=== PATIENT | female | born 1955 | race Two or more races ===

== ENCOUNTER 2019-06-23 10:15 | Emergency (ER) | payer MEDICAID ==
[~2019-06-23] VITALS: Ht 144.8 cm; Wt 47.7 kg
[2019-06-23] MEDS ORDERED: IBUP-2070 PO (10:30)
[2019-06-23] MEDS ORDERED: ACETAMINOPHEN 325 MG TABLET PO ONE (10:45)
[2019-06-23 11:21] LABS: BASOPHILS % (AUTO) 0.3 % (0.0-2.0); EOSINOPHILS % (AUTO) 0.1 % (1.0-6.0); HEMATOCRIT 38.6 % (36-46); HEMOGLOBIN 13.7 g/dL (12.0-16.0); LYMPHOCYTES # (AUTO) 0.9 K/uL (1.0-4.8); LYMPHOCYTES % (AUTO) 6.2 % (22.0-44.0); MEAN CORPUSCULAR HEMOGLOBIN 33.7 pg (26.0-34.0); MEAN CORPUSCULAR HGB CONC 35.5 G/dL (31.0-37.0); MEAN CORPUSCULAR VOLUME 95 fL (80-100); MONOCYTES # (AUTO) 1.5 K/uL (0.1-1.0); MONOCYTES % (AUTO) 10.5 % (2.0-9.0); NEUTROPHILS % (AUTO) 82.9 % (40.0-70.0); PLATELET COUNT (AUTO) 182 K/uL (150-450); RED BLOOD CELL COUNT(AUTO) 4.06 MIL/uL (4.00-5.20); RED CELL DISTRIBUTION WIDTH 12.3 % (11.5-14.5)
[2019-06-23 11:37] LABS: ANION GAP 13 mmol/L (8-16); CALCIUM, TOTAL 9.3 mg/dL (8.8-10.5); CARBON DIOXIDE 23 mmol/L (22-29); CHLORIDE 101 mmol/L (98-107); GLOMERULAR FILTR. RATE CALC > 60 mL/min (>60); GLUCOSE,RANDOM 97 mg/dL (70-110); POTASSIUM 3.2 mmol/L (3.5-5.1); SODIUM SERUM 137 mmol/L (136-145); UREA NITROGEN, BLOOD 10 mg/dL (7-18)
[2019-06-23 11:45] LABS: ALANINE AMINOTRANSFERASE 40 U/L (12-78); ALBUMIN 3.3 g/dL (3.4-5.0); ALKALINE PHOSPHATASE 133 U/L (46-116); ASPARTATE AMINOTRANSFERASE 45 U/L (15-37); BILIRUBIN,TOTAL 0.9 mg/dL (0.1-1.0); TOTAL PROTEIN, SERUM 7.2 g/dL (6.4-8.2)
[2019-06-23] MEDS ORDERED: CEPHALEXIN MONOHYDRATE 500 MG CAPSULE PO ONE (12:15)
[2019-06-23 12:59] LABS: INFLUENZA TYPE A NEGATIVE FOR TYPE A (NEGATIVE); INFLUENZA TYPE B NEGATIVE FOR TYPE B (NEGATIVE)
[2019-06-23 13:31] VITALS: BP 144/77
== END 2019-06-23 13:38 | disposition home or self-care (01) ==
LOC: EMS 10:18
DX: N12 Tubulo-interstitial nephritis, not specified as acute or chronic (principal); M79.10 Myalgia, unspecified site; F17.210 Nicotine dependence, cigarettes, uncomplicated; Z90.710 Acquired absence of both cervix and uterus
CPT/HCPCS: 87804

== ENCOUNTER 2021-02-20 10:07 | Emergency (ER) | payer MEDICAID, MEDICARE ==
[~2021-02-20] VITALS: Ht 144.8 cm; Wt 47.7 kg
[~2021-02-20 10:07] MED LIST: IBUP-2070 PO
[2021-02-20 10:09] VITALS: BP 184/107
[2021-02-20] MEDS ORDERED: MV-M1TAB57 PO (10:10)
[2021-02-20] MEDS ORDERED: CEPHALEXIN MONOHYDRATE 500 MG CAPSULE PO ONE (10:45)
[2021-02-20] MEDS ORDERED: IBUPROFEN 400 MG TABLET PO ONE (10:45)
== END 2021-02-20 11:15 | disposition home or self-care (01) ==
LOC: EMS 10:09
DX: M71.122 Other infective bursitis, left elbow (principal); L03.114 Cellulitis of left upper limb; F17.210 Nicotine dependence, cigarettes, uncomplicated
CPT/HCPCS: 99283

== ENCOUNTER 2021-02-22 09:51 | Emergency (ER) | payer MEDICARE ==
[~2021-02-22] VITALS: Ht 144.8 cm; Wt 47.7 kg
[~2021-02-22 09:51] MED LIST changes: +MV-M1TAB57 PO
[2021-02-22 09:56] VITALS: BP 166/98
[2021-02-22] MEDS ORDERED: TraMADol HCL 50 MG TABLET PO ONE (10:30)
== END 2021-02-22 11:13 | disposition home or self-care (01) ==
LOC: EMS 09:53
DX: M70.22 Olecranon bursitis, left elbow (principal); Y93.89 Activity, other specified
CPT/HCPCS: 99283

== ENCOUNTER 2024-09-12 09:50 | Emergency (ER) | payer MEDICARE ==
[~2024-09-12] VITALS: Ht 144.8 cm; Wt 40.5 kg
[~2024-09-12 09:50] MED LIST changes: +IBUP-1492 PO; -IBUP-2070 PO
[2024-09-12 09:59] VITALS: TEMP 98.3
[2024-09-12] MEDS: KETOROLAC TROMETHAMINE 60 MG/2 ML VIAL IM ONE (10:23)
[2024-09-12] MEDS ORDERED: IBUP-1492 PO (11:01)
[2024-09-12 11:12] VITALS: BP 179/81; PULSE 89; RESP 19; O2SAT 97
== END 2024-09-12 11:14 | disposition home or self-care (01) ==
LOC: EMS 09:50
DX: M23.92 Unspecified internal derangement of left knee (principal); F17.210 Nicotine dependence, cigarettes, uncomplicated; Z72.89 Other problems related to lifestyle; Z90.710 Acquired absence of both cervix and uterus
CPT/HCPCS: 99283; 29505; 73562; 96372; J1885